=== PATIENT | male | born 1985 | race Caucasian/White ===

== ENCOUNTER 2018-04-29 20:07 | Emergency (ER) | payer MEDICAID, OTHER ==
[~2018-04-29] VITALS: Ht 175.3 cm; Wt 73.0 kg
[~2018-04-29 20:07] MED LIST: DENIES; QUET100T PO
[2018-04-29 20:15] VITALS: BP 123/78
== END 2018-04-29 23:50 | disposition left against medical advice (07) ==
LOC: ER 21:05
DX: Z53.21 Procedure and treatment not carried out due to patient leaving prior to being seen by health care provider (principal); F32.9 Major depressive disorder, single episode, unspecified; F20.9 Schizophrenia, unspecified; R56.9 Unspecified convulsions

== ENCOUNTER 2018-09-17 17:39 | Emergency (ER) | payer OTHER ==
[~2018-09-17] VITALS: Ht 182.9 cm; Wt 84.0 kg
[2018-09-17 21:20] VITALS: BP 118/69
== END 2018-09-17 22:18 | disposition home or self-care (01) ==
LOC: ER 17:39
DX: F10.129 Alcohol abuse with intoxication, unspecified (principal); R40.4 Transient alteration of awareness; F32.9 Major depressive disorder, single episode, unspecified; F20.9 Schizophrenia, unspecified; Y90.8 Blood alcohol level of 240 mg/100 ml or more
CPT/HCPCS: 36415; 80320; 99283; G0480

== ENCOUNTER 2018-09-21 20:04 | Emergency (ER) | payer OTHER ==
[~2018-09-21] VITALS: Ht 180.3 cm; Wt 77.0 kg
[2018-09-21] MEDS ORDERED: SODIUM CHLORIDE 0.9% 1,000 ML IV ONE (21:49)
[2018-09-21] MEDS ORDERED: ONDANSETRON HCL 4MG/2ML INJ IV STA (21:49)
[2018-09-21 22:42] LABS: BASOPHILS % 3.3 % (0.0-2.0); EOSINOPHILS % 2.3 % (0.0-5.0); HEMATOCRIT. 38.9 % (42.0-52.0); HEMOGLOBIN. 13.3 g/dL (14.0-18.0); LYMPHOCYTES % 43.2 % (20.0-50.0); MEAN CORPUSCULAR HEMOGLOBIN 32.4 pg (28.0-32.0); MONOCYTES % 6.3 % (2.0-8.0); NEUTROPHILS % 44.9 % (40.0-76.0); PLATELET 308 x1000/uL (130-400); RED BLOOD CELL COUNT 4.09 mill/uL (4.7-6.1); RED CELL DISTRIBUTION WIDTH 15.9 % (11.6-14.6)
[2018-09-21 22:43] LABS: CHLORIDE 109 mEq/L (98-107)
[2018-09-21 22:57] LABS: ETHANOL BLOOD 447 mg/dL
[2018-09-22 04:58] VITALS: BP 105/58
== END 2018-09-22 05:18 | disposition home or self-care (01) ==
LOC: ER 20:04
DX: G92 Toxic encephalopathy (principal); T51.91XA Toxic effect of unspecified alcohol, accidental (unintentional), initial encounter; F20.9 Schizophrenia, unspecified; F32.9 Major depressive disorder, single episode, unspecified; Z79.899 Other long term (current) drug therapy; Y92.89 Other specified places as the place of occurrence of the external cause
CPT/HCPCS: 36415; 70450; 80053; 80320; 82962; 84484; 85025; 93005; 96361; 96374; 99284; J2405; J7030; Z7610; G0480

== ENCOUNTER 2019-01-10 06:33 | Emergency (ER) | payer OTHER ==
[~2019-01-10] VITALS: Ht 180.3 cm; Wt 77.0 kg
[2019-01-10] MEDS ORDERED: OLANZAPINE 5MG TABLET PO STA ×2 (08:06→11:18)
[2019-01-10] MEDS ORDERED: TETANUS, DIPHTHERIA, PERTUSSIS VAC/PF 0.5ML (>7YR OLD) IM ONE (08:15)
[2019-01-10 08:27] LABS: CHLORIDE 102 mEq/L (98-107)
[2019-01-10 08:30] LABS: ETHANOL BLOOD 78 mg/dL
[2019-01-10 08:33] LABS: BASOPHILS % 1.3 % (0.0-2.0); HEMOGLOBIN. 13.6 g/dL (14.0-18.0); LYMPHOCYTES % 14.7 % (20.0-50.0); MEAN CORPUSCULAR HEMOGLOBIN 31.6 pg (28.0-32.0); MEAN CORPUSCULAR VOLUME 92.8 fL (80.0-94.0); MEAN PLATELET VOLUME 8.3 fl (7.4-10.4); MONOCYTES % 10.5 % (2.0-8.0); NEUTROPHILS % 72.5 % (40.0-76.0); PLATELET 95 x1000/uL (130-400); RED BLOOD CELL COUNT 4.31 mill/uL (4.7-6.1); RED CELL DISTRIBUTION WIDTH 15.1 % (11.6-14.6)
[2019-01-10] MEDS ORDERED: POTASSIUM CHLORIDE 20MEQ TABLET SR PO ONE (08:45)
[2019-01-10 10:24] LABS: CLARITY URINE CLEAR (CLEAR); COLOR URINE YELLOW (YELLOW); KETONES URINE NEGATIVE (NEGATIVE); LEUKOCYTE ESTERASE URINE NEGATIVE (NEGATIVE); NITRITE URINE NEGATIVE (NEGATIVE); OCCULT BLOOD URINE NEGATIVE (NEGATIVE); PROTEIN URINE NEGATIVE (NEGATIVE); SPECIFIC GRAVITY URINE 1.004 (1.005-1.030); UROBILINOGEN URINE 0.2 E.U./dL (0.2-1.0)
[2019-01-10 10:50] LABS: *COCAINE SCREEN URINE NEGATIVE (NEGATIVE)
[2019-01-10 10:51] LABS: *AMPHETAMINES SCREEN URINE NEGATIVE (NEGATIVE); *BARBITURATES SCREEN URINE NEGATIVE (NEGATIVE); *BENZODIAZEPINES SCREEN URINE NEGATIVE (NEGATIVE); CANNABINOID URINE SCREEN NEGATIVE (NEGATIVE); METHADONE URINE SCREEN NEGATIVE (NEGATIVE); OPIATES URINE SCREEN NEGATIVE (NEGATIVE); PHENCYCLIDINE URINE SCREEN NEGATIVE (NEGATIVE)
[2019-01-10 14:26] VITALS: BP 150/85
== END 2019-01-10 15:24 ==
LOC: ER 06:33
DX: S01.512A Laceration without foreign body of oral cavity, initial encounter (principal); R45.851 Suicidal ideations; E87.6 Hypokalemia; R79.89 Other specified abnormal findings of blood chemistry; X58.XXXA Exposure to other specified factors, initial encounter; Y93.89 Activity, other specified; Y92.89 Other specified places as the place of occurrence of the external cause; Y99.8 Other external cause status; F31.9 Bipolar disorder, unspecified; F20.9 Schizophrenia, unspecified
CPT/HCPCS: 36415; 80305; 80320; 81003; 90471; 90715; 99284; G0480

== ENCOUNTER 2019-01-21 17:33 | Emergency (ER) | payer OTHER ==
[~2019-01-21] VITALS: Ht 170.2 cm; Wt 67.0 kg
[2019-01-21] MEDS ORDERED: LEVETIRACETAM 500MG PREMIX 100 ML IV ONE (18:00)
[2019-01-21] MEDS ORDERED: SODIUM CHLORIDE 0.9% 1,000 ML IV ONE (18:00)
[2019-01-21 18:29] LABS: HEMATOCRIT. 43.3 % (42.0-52.0); HEMOGLOBIN. 14.7 g/dL (14.0-18.0); MEAN CORPUSCULAR HEMOGLOBIN 31.5 pg (28.0-32.0); MEAN CORPUSCULAR VOLUME 93.1 fL (80.0-94.0); MEAN PLATELET VOLUME 8.1 fl (7.4-10.4); PLATELET 88 x1000/uL (130-400); RED BLOOD CELL COUNT 4.65 mill/uL (4.7-6.1); RED CELL DISTRIBUTION WIDTH 15.9 % (11.6-14.6)
[2019-01-21 18:34] LABS: CHLORIDE 92 mEq/L (98-107)
[2019-01-21 18:40] LABS: ETHANOL BLOOD < 10 mg/dL
[2019-01-21 18:46] LABS: PLATELET ESTIMATE DECREASED
[2019-01-21 18:50] LABS: PHENOBARBITAL < 2.1 ug/mL (15.0-40.0)
[2019-01-21 18:53] LABS: CARBAMAZEPINE < 0.5 ug/mL (4-12)
[2019-01-21 19:30] VITALS: BP 130/86
== END 2019-01-21 21:11 | disposition home or self-care (01) ==
LOC: ER 17:33
DX: G40.909 Epilepsy, unspecified, not intractable, without status epilepticus (principal); E86.0 Dehydration; F31.9 Bipolar disorder, unspecified
CPT/HCPCS: 36415; 80053; 80156; 80165; 80184; 80185; 80320; 84443; 85025; 96365; 99283; J1953; J7030; G0480

== ENCOUNTER 2019-05-07 16:15 | Emergency (ER) | payer OTHER ==
[~2019-05-07] VITALS: Ht 182.9 cm; Wt 73.0 kg
[2019-05-07 20:37] LABS: BASOPHILS % 1.5 % (0.0-2.0); EOSINOPHILS % 1.4 % (0.0-5.0); HEMATOCRIT. 41.3 % (42.0-52.0); LYMPHOCYTES % 24.1 % (20.0-50.0); MEAN CORPUSCULAR HEMOGLOBIN 32.8 pg (28.0-32.0); MEAN CORPUSCULAR VOLUME 96.7 fL (80.0-94.0); MEAN PLATELET VOLUME 6.3 fl (7.4-10.4); MONOCYTES % 9.2 % (2.0-8.0); NEUTROPHILS % 63.8 % (40.0-76.0); PLATELET 168 x1000/uL (130-400); RED BLOOD CELL COUNT 4.27 mill/uL (4.7-6.1)
[2019-05-07 20:43] LABS: CHLORIDE 104 mEq/L (98-107)
[2019-05-07 21:07] LABS: ETHANOL BLOOD 356 mg/dL
[2019-05-08 17:09] VITALS: BP 130/81
== END 2019-05-08 19:30 | disposition left against medical advice (07) ==
LOC: ER 16:15
DX: F10.129 Alcohol abuse with intoxication, unspecified (principal); Z59.0 Homelessness; Z79.899 Other long term (current) drug therapy; Y90.8 Blood alcohol level of 240 mg/100 ml or more
CPT/HCPCS: 36415; 80053; 80307; 80320; 80329; 85025; 99283; G0480

== ENCOUNTER 2019-07-25 19:39 | Emergency (ER) | payer OTHER ==
[~2019-07-25] VITALS: Ht 175.3 cm; Wt 80.0 kg
[2019-07-25] MEDS ORDERED: LEVETIRACETAM 500MG PREMIX 100 ML IV ONE (20:30)
[2019-07-25 22:17] VITALS: BP 143/100
== END 2019-07-25 22:19 | disposition home or self-care (01) ==
LOC: ER 19:39
DX: R56.9 Unspecified convulsions (principal); Z91.14 Patient's other noncompliance with medication regimen; F31.9 Bipolar disorder, unspecified
CPT/HCPCS: 96365; 99284; J1953; 99283

== ENCOUNTER 2019-07-29 10:26 | Emergency (ER) | payer OTHER ==
[~2019-07-29] VITALS: Ht 175.3 cm; Wt 82.0 kg
[2019-07-29 11:00] VITALS: BP 122/85
== END 2019-07-29 12:08 | disposition home or self-care (01) ==
LOC: ER 10:26
DX: F10.129 Alcohol abuse with intoxication, unspecified (principal); Y90.9 Presence of alcohol in blood, level not specified
CPT/HCPCS: 99283